=== PATIENT | female | born 1960 ===

== ENCOUNTER 2019-09-13 08:00 | Inpatient (IN) | payer OTHER ==
[~2019-09-13] VITALS: Ht 160 cm; Wt 98.9 kg
[2019-09-13] MEDS ORDERED: MULTI VITAMIN1 EACH PO (09:12)
[2019-09-13] MEDS ORDERED: LIPITOR40 MG PO (09:12)
[2019-09-19] MEDS ORDERED: IRON240 MG (08:33)
== END 2019-09-21 11:40 | disposition home or self-care (01) | DRG 743 ==
LOC: OB/GYN 09-19 05:00 → O/R 09-19 05:00 → OB/GYN 09-19 10:39
PROVIDERS: ADMIT Obstetrics & Gynecology
PROC: 0UT70ZZ Resection of Bilateral Fallopian Tubes, Open Approach (ICD-10-PCS; 2019-09-19)
PROC: 0UT90ZZ Resection of Uterus, Open Approach (ICD-10-PCS; principal; 2019-09-19 07:00)
DX: D25.1 Intramural leiomyoma of uterus (principal); N84.0 Polyp of corpus uteri; N80.0 Endometriosis of uterus; N83.292 Other ovarian cyst, left side; N83.291 Other ovarian cyst, right side